=== PATIENT | male | born 1975 | race Hispanic/Latino ===

== ENCOUNTER 2017-03-21 08:28 | Emergency (ER) | payer OTHER ==
[2017-03-21] MEDS ORDERED: ZOFRAN IV ONE ×2 (11:46→13:56)
[2017-03-21] MEDS ORDERED: NACL 0.9% 1000 ML 1,000 ML IV ONE ×2 (11:46→13:54)
--- NOTE | 2017-03-21 11:50 | Emergency Department Report ---
Chief Complaint: Nausea/Vomiting/Diarrhea Stated Complaint: FLU LIKE SYMPTOMS - HPI History of Present Illness: Mr. Mccallum was diagnosed last week by his PCP with influenza. He has continued nausea vomiting diarrhea. Will need IV hydration to address tachycardia. - Exam Vital Signs: Vital Signs 03/21/17 11:27 Temperature 98.3 F Pulse Rate 128 H Respiratory 20 Rate Blood Pressure 126/91 Blood Pressure 126/91 [Right] O2 Sat by Pulse 95 Oximetry MSE screening note: Focused history and physical exam performed. Due to findings the following was ordered: ED Disposition for MSE Condition: Stable
[2017-03-21 12:07] LABS: Hematocrit 48.5 % (35.5-45.6); Hemoglobin 16.2 gm/dl (11.8-15.2); Mean Corpuscular HGB Conc 33 % (32-34); Mean Corpuscular Hemoglobin 33 pg (28-32); Mean Corpuscular Volume 99 fl (84-94); Platelet Count 249 K/mm3 (140-440)
[2017-03-21 12:24] LABS: BUN/Creatinine Ratio 21; Blood Urea Nitrogen 17 mg/dL (9-20); Calcium 9.2 mg/dL (8.4-10.2); Hemolysis Index 12
[2017-03-21 12:29] LABS: Bilirubin,Urine SM (Negative); Blood,Urine NEG (Negative); Color,Urine Amber (Yellow); Hyaline Casts,Urine 4 /LPF; Mucus,Urine 3+ /HPF; Nitrite,Urine NEG (Negative)
[2017-03-21 12:31] LABS: Ictotest,Urine Negative (Negative)
[2017-03-21 13:05] LABS: Basophils % (Manual) 0 % (0.0-1.8); Eosinophils % (Manual) 0 % (0.0-4.3); Stomatocytes 3+; Total Cells Counted 100
[2017-03-21 13:06] LABS: Platelet Estimate Consistent w Auto
--- NOTE | 2017-03-21 14:14 | Emergency Department Report ---
ED N/V/D HPI - General Chief complaint: Nausea/Vomiting/Diarrhea Stated complaint: FLU LIKE SYMPTOMS Time Seen by Provider: 03/21/17 11:48 Source: patient Mode of arrival: Ambulatory Limitations: No Limitations - History of Present Illness Initial comments: 42-year-old male past medical history smoker presents with complaint of approximately 1-1-1/2 weeks of malaise and intermittent nausea or vomiting some epigastric pain and body aches. Patient states he was treated for influenza by his primary care doctor approximately 1.5 weeks ago. Was given course of Tamiflu and also given an empiric course of Augmentin twice a day for 10 days. Patient is awake alert and oriented 3 does not appear to be in acute distress. States he has had some nausea but is able to tolerate some by mouth fluid. Patient also states he has had some intermittent body aches. Patient is fully lucid and nontoxic appearing. Denies chest pain shortness of breath or productive cough. Patient admits to smoking but denies any other drug or alcohol use. Patient was screened by Dr. Goodrich. States he had some diarrhea earlier this week which has improved. States he typically has 3 bowel movements per day. Has not had diarrhea since Friday. Slightly decreased appetite. MD complaint: nausea, vomiting, diarrhea, abdominal pain Onset/Timin -: week(s) Description of Vomiting: food contents Description of Diarrhea: water Radiation: none Severity: mild Quality: aching Consistency: intermittent Improves with: none Context: sick contacts, recent anitbiotic use Associated Symptoms: nausea/vomiting - Related Data Previous Rx's Medication Instructions Recorded Last Taken Type Bismuth Subsalicylate 10 mg PO QID PRN #1 bottle 03/21/17 Unknown Rx [Pepto-Bismol] Ciprofloxacin HCl [Cipro] 500 mg PO BID #14 tablet 03/21/17 Unknown Rx Ondansetron [Zofran Odt] 4 mg PO Q8H PRN #12 tab.rapdis 03/21/17 Unknown Rx metroNIDAZOLE [Metronidazole] 500 mg PO BID #14 tablet 03/21/17 Unknown Rx Allergies Allergy/AdvReac Type Severity Reaction Status Date / Time codeine AdvReac Nausea Verified 03/21/17 11:31 ED Review of Systems ROS: Stated complaint: FLU LIKE SYMPTOMS Other details as noted in HPI Constitutional: malaise. denies: chills, fever Eyes: denies: eye pain, eye discharge, vision change ENT: denies: ear pain, throat pain Respiratory: denies: cough, shortness of breath, wheezing Cardiovascular: denies: chest pain, palpitations Endocrine: no symptoms reported Gastrointestinal: nausea, diarrhea. denies: abdominal pain Genitourinary: denies: urgency, dysuria Musculoskeletal: denies: back pain, joint swelling, arthralgia Skin: denies: rash, lesions Neurological: denies: headache, weakness, paresthesias Psychiatric: denies: anxiety, depression Hematological/Lymphatic: denies: easy bleeding, easy bruising ED Past Medical Hx - Past Medical History Additional medical history: chronic back pain - Social History Smoking Status: Never Smoker Substance Use Type: None - Medications Home Medications: Home Medications Medication Instructions Recorded Confirmed Last Taken Type Bismuth Subsalicylate 10 mg PO QID PRN #1 bottle 03/21/17 Unknown Rx [Pepto-Bismol] Ciprofloxacin HCl [Cipro] 500 mg PO BID #14 tablet 03/21/17 Unknown Rx Ondansetron [Zofran Odt] 4 mg PO Q8H PRN #12 tab.rapdis 03/21/17 Unknown Rx metroNIDAZOLE [Metronidazole] 500 mg PO BID #14 tablet 03/21/17 Unknown Rx ED Physical Exam - General Limitations: No Limitations General appearance: alert, in no apparent distress - Head Head exam: Present: atraumatic, normocephalic - Eye Eye exam: Present: normal appearance, PERRL, EOMI - ENT ENT exam: Present: mucous membranes moist - Neck Neck exam: Present: normal inspection - Respiratory Respiratory exam: Present: normal lung sounds bilaterally. Absent: respiratory distress - Cardiovascular Cardiovascular Exam: Present: regular rate, normal rhythm. Absent: systolic murmur, diastolic murmur, rubs, gallop - GI/Abdominal GI/Abdominal exam: Present: soft (abdomen soft nontender nondistended 4 quadrants), normal bowel sounds - Rectal Rectal exam: Present: deferred - Extremities Exam Extremities exam: Present: normal inspection - Back Exam Back exam: Present: normal inspection - Neurological Exam Neurological exam: Present: alert, oriented X3, CN II-XII intact, normal gait - Psychiatric Psychiatric exam: Present: normal affect, normal mood - Skin Skin exam: Present: warm, dry, intact, normal color. Absent: rash ED Course Vital Signs 03/21/17 03/21/17 03/21/17 11:27 13:48 15:18 Temperature 98.3 F 97.8 F Pulse Rate 128 H 134 H 97 H Respiratory 20 20 Rate Blood Pressure 126/91 Blood Pressure 126/91 134/81 112/76 [Right] O2 Sat by Pulse 95 98 Oximetry ED Medical Decision Making - Lab Data Result diagrams: 03/21/17 11:54 03/21/17 11:54 - Medical Decision Making A/P: Viral syndrome, gastroenteritis 1-case discussed with Dr. Goodrich including labs and diagnostic imaging. 2-patient's tachycardia has significantly improved with by mouth and IV hydration. Patient now tolerating by mouth fluid and food without difficulty. 3-will treat patient empirically for colitis/C. difficile/enteritis with course of Cipro and Flagyl. Patient was recently on course of Augmentin as per his primary care doctor. It is possible that this may have induced his diarrhea. 4- I advised patient to return to the ED for any severe fevers chills temperatures above 100.4 Fahrenheit despite Tylenol or Motrin use inability to tolerate by mouth bloody diarrhea chest pain or abdominal pain. Patient stated he understood my instructions clearly and would follow up with his primary care doctor. Critical care attestation.: If time is entered above; I have spent that time in minutes in the direct care of this critically ill patient, excluding procedure time. ED Disposition Clinical Impression: Gastroenteritis Disposition: DC-01 TO HOME OR SELFCARE Is pt being admited?: No Does the pt Need Aspirin: No Condition: Stable Instructions: Gastroenteritis (ED), Acute Nausea and Vomiting (ED), Viral Syndrome (ED), Acute Diarrhea (ED) Prescriptions: Bismuth Subsalicylate [Pepto-Bismol] 10 mg PO QID PRN #1 bottle PRN Reason: Diarrhea Ciprofloxacin HCl [Cipro] 500 mg PO BID #14 tablet metroNIDAZOLE [Metronidazole] 500 mg PO BID #14 tablet Ondansetron [Zofran Odt] 4 mg PO Q8H PRN #12 tab.rapdis PRN Reason: Nausea Referrals: [facility] [Provider Group] - 3-5 Days [facility] [Outside] - 3-5 Days [facility] [Outside] - 3-5 Days Forms: Work/School Release Form(ED) Time of Disposition: 16:12
[2017-03-21 14:47] LABS: Albumin 4.2 g/dL (3.9-5); Bilirubin,Direct 0.2 mg/dL (0-0.2)
--- NOTE | 2017-03-21 14:58 | Cat Scan Report ---
CT ABDOMEN PELVIS WITH CONTRAST: HISTORY: Nausea, epigastric abdominal pain. COMPARISON: none. TECHNIQUE: Helical CT in 1.25mm intervals following IV contrast. Sagittal and coronal reconstructions. FINDINGS: Lung bases: Normal. Liver: Normal. Biliary system: Normal. Pancreas: Normal. Spleen: Normal. Kidneys/ureters/bladder: Normal. Adrenal glands: Normal. Aorta: Normal. Intestines: No oral contrast was administered. The bowel loops are fluid-filled but nondilated. No focal inflammation or inflammatory changes. This may represent gastroenteritis. Appendix: Normal. Pelvic viscera: Normal. Ascites: None. Adenopathy: None. Musculoskeletal: Normal. IMPRESSION: No acute inflammatory process is identified. Fluid-filled bowel loops which could represent gastroenteritis, correlate with the patient.
[2017-03-21 15:19] VITALS: BP 112/76
== END 2017-03-21 16:27 | disposition home or self-care (01) ==
LOC: ED 08:28
DX: K52.9 Noninfective gastroenteritis and colitis, unspecified (principal)
CPT/HCPCS: 36415; 74177; 80048; 80074; 81001; 82140; 82550; 83690; 85007; 85025; 87040; 96361; 96374; 96376; 99284; J2405; J7030; Q9967